=== PATIENT | male | born 1955 | race Caucasian/White ===

== ENCOUNTER → 2020-09-04 | Outpatient (CLI) | payer OTHER ==
[~2020-09-04] MED LIST: ASPIRIN325 PO; ATORVASTATIN CA40 MG PO; COZAAR 25 MG TA25 M1 PO; EFFIENT10 MG PO; GLUCOPHAGE XR500 MG PO; METOPROLOL SUCC25 M1 PO
== END ==
LOC: SJCVCIMAG 15:29
PROVIDERS: ATTEND Internal Medicine Cardiovascular Disease
DX: M79.662 Pain in left lower leg (principal)

== ENCOUNTER → 2020-09-06 | Outpatient (CLI) | payer OTHER | LOC: SJCVCIMAG 09:28 | PROVIDERS: ATTEND Internal Medicine Cardiovascular Disease | DX: I71.4 Abdominal aortic aneurysm, without rupture (principal); I49.3 Ventricular premature depolarization; I25.10 Atherosclerotic heart disease of native coronary artery without angina pectoris; I10 Essential (primary) hypertension; R06.09 Other forms of dyspnea; R53.83 Other fatigue ==

== ENCOUNTER 2021-01-05 03:21 | Emergency (ER) | payer OTHER ==
[~2021-01-05] VITALS: Ht 175.3 cm; Wt 99.8 kg
[2021-01-05 03:27] VITALS: BP 157/85
[2021-01-05] MEDS ORDERED: FLEXERIL PO (03:52)
== END 2021-01-05 04:04 | disposition home or self-care (01) ==
LOC: ER 03:21
DX: M54.41 Lumbago with sciatica, right side (principal); I25.2 Old myocardial infarction; I25.10 Atherosclerotic heart disease of native coronary artery without angina pectoris; F17.210 Nicotine dependence, cigarettes, uncomplicated; Z79.82 Long term (current) use of aspirin; Z79.891 Long term (current) use of opiate analgesic; Z79.899 Other long term (current) drug therapy

== ENCOUNTER → 2021-04-10 | Outpatient (CLI) | payer OTHER ==
[~2021-04-10] MED LIST changes: +FLEXERIL PO
== END ==
LOC: RAD 10:19
PROVIDERS: ATTEND Nurse Practitioner
DX: U07.1 COVID-19 (principal); J98.4 Other disorders of lung